=== PATIENT | female | born 1960 | race Two or more races ===

== ENCOUNTER 2024-08-05 10:42 | Emergency (ER) | payer MEDICAID, SELFPAY ==
[2024-08-05 11:29] VITALS: BP 147/105; BP 189/113; PULSE 100; RESP 19; TEMP 37.1; O2SAT 98; BMI 28.1
--- NOTE | 2024-08-05 11:41 | XR_ITS ---
Examination: CT abdomen with intravenous contrast CT pelvis with intravenous contrast 2-D coronal reconstructions 2-D sagittal reconstructions Date and time of exam:August 05, 2024 1542 hours Comparison January 06, 2023 INDICATIONS: Onset right lower abdominal pain with nausea today. CTDI: vol (mGy) 9.16 DLP: (mGycm) 501 Technique: Multiple axial sections of the abdomen and pelvis have been obtained. 64 slice high-resolution scanner used. 3 mm axial sections have been obtained, post intravenous injection 60 cc [id number] 2-D sagittal, coronal reconstructions obtained. Low dose protocols were performed. One or more of the following dose reduction techniques were used; automated exposure control, adjustment of the mA and/or KV according to patient size, use of iterative reconstruction technique. Findings: No focal liver or splenic lesion Absent gallbladder No pancreatic or adrenal mass 2 mm upper pole right renal calculus Advanced right hydronephrosis, prominent renal cortical thinning 2 mm calculus in the lower pole right kidney Mild left hydronephrosis, no ureteral calculi Aorta normal size Normal appendix No bowel obstruction Colonic diverticulosis, no diverticulitis No bladder mass or bladder calculi Absent uterus Severe osteopenia Moderate chronic osteoporotic compressions L1 mild chronic osteoporotic compressions L3-L4 IMPRESSION: Advanced right hydronephrosis, prominent right renal cortical thinning 2 mm calculus lower pole right kidney Mild left hydronephrosis, no ureteral calculi
--- NOTE | 2024-08-05 11:44 | EDNOTE_ITS ---
<Statement entered by Sade Kowalski MD - 08/05/24 17:11> As co-signing physician, I was present and available for consult prn. I concur with the plan and care as documented by the midlevel provider. ED Abdominal Pain RME/HPI General Chief Complaint: Abdominal Pain Stated complaint: Abdominal pain since last night Time seen by provider: 08/05/24 11:17 Arrival date/time: 08/05/24 10:42 RME / HPI RME / HPI narrative: 63-year-old female patient with no significant medical history, came in for evaluation regarding right lower quadrant pain. Onset of symptoms since last night as sudden onset of right lower quadrant pain, described as dull ache, severity moderate. Associated with nausea. Patient denies any fever. Patient denies any vomiting denies any diarrhea denies any constipation. Denies any dys uria hematuria or frequency. Patient told me that he had a history of kidney stone in the past also. Patient took ibuprofen with no relief. Related Data Home Medications ?Medication ?Instructions ?Recorded ?Confirmed ibuprofen 600 mg tablet 1 tab PO DAILY PRN Pain 02/22/22 11/07/22 omeprazole 20 mg capsule,delayed 20 mg PO QDAY 09/12/22 11/07/22 release Previous Rx's ?Medication ?Instructions ?Recorded hydrocodone 5 mg-acetaminophen 325 1 tab PO TID PRN pain #8 tabs 06/09/22 mg tablet ciprofloxacin HCl 500 mg tablet 500 mg PO BID #20 tabs 12/17/22 metronidazole 500 mg tablet 500 mg PO TID #21 tabs 12/17/22 hydrocodone 5 mg-acetaminophen 325 1 tab PO Q8H PRN pain #14 tabs 03/24/23 mg tablet ibuprofen 600 mg tablet 600 mg PO TID PRN pain #30 tabs 03/24/23 polyethylene glycol 3350 17 17 g PO QDAY #119 grams 03/24/23 gram/dose oral powder (ClearLax) cephalexin 500 mg capsule 500 mg PO QID #28 caps 08/10/23 hydrocodone 5 mg-acetaminophen 325 1 tab PO Q8H PRN pain #10 tabs 08/10/23 mg tablet acetaminophen 300 mg-codeine 30 mg 1 tab PO TID PRN pain #20 tabs 08/05/24 tablet Allergies Allergy/AdvReac Type Severity Reaction Status Date / Time clindamycin Allergy Severe Rash Verified 08/09/23 18:29 morphine Allergy Severe Rash Verified 08/09/23 18:29 Review of Systems Review of Systems Narrative Review of Systems: Review of system reviewed and within normal limits except mentioned in HPI ED Exam Narrative Physical exam: VITAL SIGNS: Reviewed. GENERAL APPEARANCE: Alert and interactive, follows commands, no acute distress, HEAD AND FACE: Non-traumatic. ENT: PERRL, pink conjunctivitis, eyelid no trauma, Mucous membrane moist. NECK: Supple, nontender, no nuchal rigidity. CHEST: No tenderness, no crepitus, no paradoxical movement, no retractions. LUNGS: Clear, well ventilated, symmetric, no rales, no wheezing, no ronchi, no stridor, good breath sounds bilaterally. HEART: Regular rate, regular rhythm, no murmur, no gallops. ABDOMEN: Soft, positive bowel sounds, nondistended, no guarding, right lower quadrant tenderness, no rebound, no masses, RECTAL: Deferred. GENITAL: Deferred. NEUROLOGICAL: Gross motor function intact sensory function intact, Appropriate for age. MUSCULOSKELETAL: low back nontender, full range of motion. EXTREMITIES: Nontender, full range of motion. SKIN: Color pink, dry, no rash, no lacerations, no abrasions, no contusions. LYMPHATICS: Deferred. Course Quality Measures none Orders Category Date Time Status CT Screening NOW Care 08/05/24 11:[address] abdomen pelvis w con Stat Exams 08/05/24 11:41 Completed C-Reactive Protein Stat Lab 08/05/24 12:06 Completed CBC Stat Lab 08/05/24 12:06 Completed Comprehensive Metabolic Panel Stat Lab 08/05/24 12:06 Completed Lactate (Lactic Acid) Stat Lab 08/05/24 12:06 Completed Lactic Acid, 3 HR Stat Lab 08/05/24 16:22 Completed Partial Thromboplastin Time Stat Lab 08/05/24 12:06 Completed Procalcitonin Stat Lab 08/05/24 12:06 Completed Prothrombin Time with INR Stat Lab 08/05/24 12:06 Completed UA, C/S IF [Urinalysis, C/S if Indicated] Stat Lab 08/05/24 12:56 Completed Acetaminophen Tab [Tylenol ES Tab] Med 08/05/24 16:59 Discontinued 1,000 mg PO X1 ONE Ketorolac Inj [Toradol Inj] Med 08/05/24 11:43 Discontinued 30 mg IVP X1 ONE Ondansetron Inj [Zofran Inj] Med 08/05/24 11:43 Discontinued 4 mg IV X1 ONE Sodium Chloride 0.9% 1000 ml [Ns] 1,000 ml Med 08/05/24 11:44 Discontinued IV 999 mls/hr Vital Signs Vital signs: Vital Signs Temperature 98.8 F 08/05/24 11:29 Pulse Rate 100 08/05/24 11:29 Respiratory Rate 19 08/05/24 11:29 Blood Pressure 189/113 H 08/05/24 11:29 Pulse Oximetry (%) 98 08/05/24 11:29 Oxygen Delivery Method Room Air 08/05/24 11:29 Abdominal Pain [facility] Narrative [facility] Narrative:: 63-year-old female patient with no significant medical history, came in for evaluation regarding right lower quadrant pain. Onset of symptoms since last night as sudden onset of right lower quadrant pain, described as dull ache, severity moderate. Associated with nausea. Patient denies any fever. Patient denies any vomiting denies any diarrhea denies any constipation. Denies any dysuria hematuria or frequency. Patient told me that he had a history of kidney stone in the past also. Patient took ibuprofen with no relief. Patient workup all came back normal except for leukocytosis of 14.5. Patient's creatinine is normal. Urinalysis no UTI. CT scan of the abdomen pelvis showed Advanced right hydronephrosis, prominent right renal cortical thinning 2 mm calculus lower pole right kidney Mild left hydronephrosis, no ureteral calculi Patient data External records reviewed:: None Clinical information provided by:: patient Social determinants that could affect healthcare access:: none Patient has the following chronic illnesses:: History of kidney stone How is presenting disease/condition affected by chronic disease/condition?: exacerbated by Evaluation data The following diagnostics were reviewed and interpreted by me:: lab results and radiology exam(s) Lab and/or radiology exams considered but not ordered:: None Interpretation Summary: See above in the MDM Medications / Prescriptions Medications or Prescriptions considered but not ordered:: none Medication administrations:: Medication Administration History Discontinued Medications Acetaminophen (Acetaminophen 500 Mg Tablet) 1,000 mg PO X1 ONE Stop: 08/05/24 17:00 Sodium Chloride (Ns) 1,000 mls @ 999 mls/hr IV .Q1H1M ONE Stop: 08/05/24 12:44 Last Infusion: 08/05/24 16:19 Dose: Infused Documented By: JOSÉ MIGUEL Admin: 08/05/24 15:05 Dose: 999 mls/hr Documented By: KOTA Ketorolac Tromethamine (Ketorolac Inj 30 Mg/Ml Vial) 30 mg IVP X1 ONE Stop: 08/05/24 11:44 Last Admin: 08/05/24 15:06 Dose: 30 mg Documented By: KOTA Ondansetron HCl (Ondansetron Inj 2 Mg/Ml Inj 2 Ml) 4 mg IV X1 ONE; Protocol Stop: 08/05/24 11:44 Last Admin: 08/05/24 15:06 Dose: 4 mg Documented By: KOTA Toradol IV fluids and Tylenol. Patient was also given Zofran with good relief of pain Consultations Consultation(s) initiated? (list below): No Diagnosis Differential diagnosis abdominal pain: abdominal pain, acute appendicitis and calculus of kidney Most likely diagnosis given after review of the tests above:: Abdominal pain, renal colic, nephrolithiasis Admission Indicated Admission indicated?: not indicated Explain why admission is indicated or not indicated:: Stable Admission Request Was there a request for admission?: No Disposition Plan Disposition Plan: Discharge Discharge Attestation Discharge Attestation: The patient was given an opportunity to ask questions and understood the discharge instructions. Discharge instructions specifically effects, indications for sooner follow up or return to the emergency department, and the expected course of current diagnosis. Patient condition: Stable Discharge Plan Plan Patient Disposition: HOME (Self Care) Disposition Comment: Stable Prescriptions/Referrals Prescriptions/Med Rec: New acetaminophen-codeine 300-30 mg tablet 1 tab PO TID PRN (Reason: pain) Qty: 20 0RF No Action ibuprofen 600 mg tablet 1 tab PO DAILY PRN (Reason: Pain) Patient Comments: take 1 tablet by mouth three times a day with food or milk if needed hydrocodone-acetaminophen 5-325 mg tablet 1 tab PO TID MDD 3 PRN (Reason: pain) Qty: 8 0RF hydrocodone-acetaminophen 5-325 mg tablet 1 tab PO Q8H MDD 3 PRN (Reason: pain) Qty: 14 0RF Rx Instructions: Patient has taken this medication in the past. ibuprofen 600 mg tablet 600 mg PO TID PRN (Reason: pain) Qty: 30 0RF Rx Instructions: Take with food. polyethylene glycol 3350 [ClearLax] 17 gram/dose powder 17 g PO QDAY Qty: 119 0RF Rx Instructions: While on narcotics to avoid constipation. cephalexin 500 mg capsule 500 mg PO QID Qty: 28 0RF hydrocodone-acetaminophen 5-325 mg tablet 1 tab PO Q8H MDD 3 tabs/day PRN (Reason: pain) Qty: 10 0RF omeprazole 20 mg Capsule,Delayed Release(Dr/Ec) 20 mg PO QDAY metronidazole 500 mg tablet 500 mg PO TID Qty: 21 0RF ciprofloxacin HCl 500 mg tablet 500 mg PO BID Qty: 20 0RF Referrals: No Primary/Family,Physician [Primary Care Provider] - In 1 week Problem List Clinical Impression: Abdominal pain, Nephrolithiasis Patient/Caregiver Discharge Instructions Discharge Activity: activity as tolerated Education Materials: ED Kidney Stone w/ Colic Additional Instructions: Thank you for the opportunity for serving you today. You are stable for discharged . You are advised to: Follow-up with your urologist in 1 to 2 days Return to ED for worsening of symptoms Increase oral fluids Take medication as prescribed Print Language: Italian Stand Alone Forms: Santa Award Info., Patient Portal Info Letter PA/PARTH Supervising Physician GUME/PARTH Supervising Physician: MD Dex
[2024-08-05 12:24] LABS: Lactate (Lactic Acid) 2.8 mMol/L (0.4-2.0)
[2024-08-05 12:30] LABS: Basophils % (Auto) 0 % (0-2.5); Eosinophils # (Auto) 0.1 Thou/mm3 (0.0-0.5); Eosinophils % (Auto) 1 % (0-10); Hematocrit 44.4 % (36.0-46.0); Hemoglobin 14.7 g/dL (12.0-16.0); Immature Granulocytes % (Auto) 1 % (0-0); Immature Granulocytes Auto 0.16 Thou/mm3 (0.00-0.00); Lymphocytes # (Auto) 2.9 Thou/mm3 (1.0-4.8); Lymphocytes % (Auto) 20 % (10-50); Mean Corpuscular HGB Conc 33.1 g/dl (31.0-37.0); Mean Corpuscular Hemoglobin 30.5 pg (25.0-35.0); Mean Corpuscular Volume 92 fL (80-100); Monocytes # (Auto) 1.2 Thou/mm3 (0.0-0.8); Monocytes % (Auto) 8 % (0-12); Neutrophils # (Auto) 10.2 Thou/mm3 (1.8-7.7); Neutrophils % (Auto) 70 % (37-80); Nucleated Red Blood Cell % 0 /100 WBC (0); Platelet Count 197 Thou/mm3 (140-440); RDW Standard Deviation 48.6 fL (36.4-46.3); Red Blood Count 4.82 Miln/mm3 (4.00-5.20); White Blood Count 14.5 Thou/mm3 (3.6-11.0)
[2024-08-05 12:45] LABS: Partial Thromboplastin Time 32.1 Seconds (22.0-36.0); Prothrombin Time 10.9 Seconds (9.0-12.2)
[2024-08-05 12:54] LABS: Alanine Aminotransferase 27 U/L (10-49); Albumin, Serum 4.7 gm/dL (3.4-4.8); Albumin/Globulin Ratio 1.8 (1.2-2.2); Alkaline Phosphatase 182 U/L (46-116); Anion Gap 11 (7-16); Aspartate Amino Transferase 23 U/L (0-34); BUN/Creatinine Ratio 18 Ratio (12-20); Bilirubin,Total 1.1 mg/dL (0.3-1.2); Blood Urea Nitrogen 16 mg/dL (9-23); C-Reactive Protein 2.1 mg/dL (0.0-0.9); Calcium 9.7 mg/dL (8.3-10.6); Calcium (Corrected) 9.7 mg/dL (8.5-10.1); Carbon Dioxide 26.8 mMol/L (20.0-31.0); Chloride 99 mMol/L (98-107); Creatinine (Component) 0.9 mg/dL (0.6-1.3); Estimated Creatinine Clearance 57.7 mL/min (>60); Globulin 2.6 gm/dL (2.3-3.5); Glucose 116 mg/dL (74-106); Osmolality,Calculated 276 (275-295); Potassium 3.6 mMol/L (3.4-5.1); Procalcitonin 0.12 ng/ml (0.0-0.49); Sodium 137 mMol/L (136-145); Total Protein 7.3 gm/dL (5.7-8.2); eGFR > 60 See Note
[2024-08-05 13:04] LABS: Collection Type, Urine Clean Catch
[2024-08-05 13:10] LABS: Bilirubin,Urine Negative (Negative); Blood,Urine Negative (Negative); Clarity,Urine Clear (Clear/Hazy); Color,Urine Yellow (Lt Yel-Yel); Culture Indicated,Urine Not Indicated; Glucose, Urine Negative (Negative); Ketones,Urine Negative (Negative); Leukocyte Esterase,Urine Negative (Negative); Nitrite,Urine Negative (Negative); Protein,Urine 1+ (Neg - Trace); RBC,Urine 2 /hpf (0-3); Specific Gravity,Urine 1.017 (1.001-1.035); Squamous Epithelial Cell,Urine 2 /hpf (0-5); Urobilinogen,Urine Negative mg/dL (0.0-1.0); WBC,Urine 3 /hpf (0-5)
--- NOTE | 2024-08-05 14:55 | PC.NURSE ---
CALLED PT BACK, NO ANSWER AT THIS TIME
[2024-08-05] MEDS: SODIUM CHLORIDE 0.9% 1000 ML 1,000 ML 999 ML IV (15:05)
[2024-08-05] MEDS: ONDANSETRON INJ 2 MG/ML INJ 2 ML 4 MG IV (15:06)
[2024-08-05] MEDS: KETOROLAC INJ 30 MG/ML VIAL IVP (15:06)
[2024-08-05 15:07] VITALS: BP 157/83; PULSE 93; RESP 18; O2SAT 95
[2024-08-05 15:17] LABS: Reflex Lactate? Y
[2024-08-05 16:21] VITALS: BP 176/109; PULSE 88; RESP 18; TEMP 36.7; O2SAT 98
[2024-08-05 16:45] LABS: Lactic Acid, 3 HR 0.9 mMol/L (0.4-2.0)
== END 2024-08-05 18:15 | disposition home or self-care (01) ==
PROVIDERS: Nurse Practitioner Family; Emergency Provider Emergency Medicine
DX: N20.0 Calculus of kidney (principal)
CPT/HCPCS: 36415; 74177; 80053; 81001; 83605; 84145; 85025; 85610; 85730; 86140; 96361; 96374; 96375; 99285; A4649; J1885; J2405; J7030; Q9967

== ENCOUNTER 2024-11-17 08:56 | Emergency (ER) | payer MEDICARE, MEDICAID, SELFPAY ==
[2024-11-17 08:57] VITALS: BMI 25.2
--- NOTE | 2024-11-17 09:02 | EKG_ITS ---
[facility] Test Date: 2024-11-17 Pat Name: NAVNEET JOHNSON Department: Room: - Gender: Female Fitness And Wellness Manager: : 1960 Requested By: Ricardo Quezada (YESSI) Order Number: [id number] Reading MD: Ricardo Quezada ([employer]ER) Measurements Intervals [place] Rate: 104 P: 7 VA: 123 QRS: -23 QRSD: 86 T: 16 QT: 342 QTc: 451 Interpretive Statements SINUS TACHYCARDIA BORDERLINE LEFT AXIS DEVIATION [QRS AXIS < -20] ABNORMAL RHYTHM ECG Compared to ECG 09/12/2022 10:05:01 Sinus rhythm no longer present /store/S0/[id number].pdf
[2024-11-17 09:11] VITALS: BP 99/67; PULSE 103; RESP 20; TEMP 36.3; O2SAT 97; BMI 27.8
--- NOTE | 2024-11-17 09:26 | PD.EDRME ---
Rapid Medical Screening Exam RME Arrival date/time: 11/17/24 08:56 64-year-old female presents to the emergency department today for complaint of generalized weakness and fatigue Chief Complaint: Dizziness Vital signs: Vital Signs Temperature 97.4 F 11/17/24 09:11 Pulse Rate 103 H 11/17/24 09:11 Respiratory Rate 20 11/17/24 09:11 Blood Pressure 99/67 11/17/24 09:11 Pulse Oximetry (%) 97 11/17/24 09:11 Oxygen Delivery Method Room Air 11/17/24 09:11
--- NOTE | 2024-11-17 09:45 | PD.EDWEAK ---
ED Weakness RME/HPI General Chief complaint: Dizziness Stated complaint: WEAK AND DIZZINESS SINCE FRIDAY Arrival date/time: 11/17/24 08:56 RME / HPI RME / HPI Narrative: 11/17/24 08:56 64-year-old female presents to the emergency department today for complaint of generalized weakness and fatigue DR. KOWALSKI MAIN ED EVALUATION: 64 year old female presents to the Emergency Department with complaints of generalized weakness and fatigue. She mentions that she has vertigo, room spinning. Onset of symptoms Friday, 3 days, intermittently. She states that 3 days ago she had diarrhea but yesterday it was back to normal, normal small bowel movement yesterday evening. She mentions she cannot eat well. No abdominal pain or black stools. No fevers or chills. Related Data Home Medications ?Medication ?Instructions ?Recorded ?Confirmed ibuprofen 600 mg tablet 1 tab PO DAILY PRN Pain 02/22/22 11/07/22 omeprazole 20 mg capsule,delayed 20 mg PO QDAY 09/12/22 11/07/22 release Previous Rx's ?Medication ?Instructions ?Recorded hydrocodone 5 mg-acetaminophen 325 1 tab PO TID PRN pain #8 tabs 06/09/22 mg tablet ciprofloxacin HCl 500 mg tablet 500 mg PO BID #20 tabs 12/17/22 metronidazole 500 mg tablet 500 mg PO TID #21 tabs 12/17/22 hydrocodone 5 mg-acetaminophen 325 1 tab PO Q8H PRN pain #14 tabs 03/24/23 mg tablet ibuprofen 600 mg tablet 600 mg PO TID PRN pain #30 tabs 03/24/23 polyethylene glycol 3350 17 17 g PO QDAY #119 grams 03/24/23 gram/dose oral powder (ClearLax) cephalexin 500 mg capsule 500 mg PO QID #28 caps 08/10/23 hydrocodone 5 mg-acetaminophen 325 1 tab PO Q8H PRN pain #10 tabs 08/10/23 mg tablet acetaminophen 300 mg-codeine 30 mg 1 tab PO TID PRN pain #20 tabs 08/05/24 tablet Allergies Allergy/AdvReac Type Severity Reaction Status Date / Time clindamycin Allergy Severe Rash Verified 11/17/24 08:59 morphine Allergy Severe Rash Verified 11/17/24 08:59 Review of Systems Review of Systems Systems Reviewed: All systems reviewed, normal except as documented Past Medical History Past Medical History GASTROINTESTINAL: Positive Gastrointestinal Disorders, Diverticulitis, Ulcer and Gastroesophageal Reflux Disease GENITOURINARY: Positive Genitourinary Disorders, Renal Disease (stones) and Kidney Stones REPRODUCTIVE: Positive Previous Pregnancies MUSCULOSKELETAL: Positive Musculoskeletal Disorders, Arthritis and Fractures ENT: Positive Ear Infection OTHER HISTORY: Positive Hospitalization, Falls, Chicken Pox, Measles, Mumps and Cancer Family History FAMILY HISTORY: Positive Family Cardiac Disorders, Family Gastrointestinal Problems, Family Cancer and Family Surgery Surgical History SURGICAL: Positive Abdominal Surgery and Hysterectomy Social History SMOKING STATUS: Never smoker SECOND HAND EXPOSURE: No SUBSTANCE USE: does not use ALCOHOL: Never ED Exam Narrative Physical exam: GENERAL APPEARANCE: alert and oriented x 4, well-developed, well-nourished, no acute distress VITALS: All vitals were reviewed and the pulse ox is 97% on room air, which is normal according to my interpretation. HEENT: Normocephalic, atraumatic; pupils equal, round, reactive to light; EOMI; mucous membranes pink, moist; oropharynx clear NECK: Supple LUNGS: CTABL; no wheezes, no rales, no rhonchi HEART: Regular rate, regular rhythm; normal S1, S2; no murmurs ABDOMEN: non distended; normal BS; soft, no tenderness, no guarding, no rebound; no masses, no organomegaly, no hernia BACK: no CVA tenderness EXTREMITIES: atraumatic; no edema NEUROLOGIC: awake; alert and oriented x4; cranial nerves II-XII grossly intact; no focal sensory or motor deficits PSYCHIATRIC: appropriate mood and affect SKIN: warm, dry, normal color; no rashes Course Quality Measures none Orders Category Date Time Status EKG (ED ONLY) *Do not use* NOW Care 11/17/24 09:02 Completed EKG (ED Only) Stat Exams 11/17/24 09:02 Draft XR abdomen series w chest 1V Stat Exams 11/17/24 10:34 Completed B-Type Natriuretic Peptide Stat Lab 11/17/24 10:14 Completed CBC Stat Lab 11/17/24 10:14 Completed Comprehensive Metabolic Panel Stat Lab 11/17/24 10:14 Completed Magnesium Stat Lab 11/17/24 10:14 Completed TSH [Thyroid Stimulating Hormone] Stat Lab 11/17/24 10:14 Completed Troponin I Stat Lab 11/17/24 10:14 Completed Urinalysis Stat Lab 11/17/24 09:55 Completed KCL 10% Liq UDC 15 ML Med 11/17/24 11:37 Discontinued 40 meq PO X1 ONE Magnesium Oxide [Mag-Ox 400] Med 11/17/24 11:37 Discontinued 400 mg PO X1 ONE Meclizine HCl [Antivert] Med 11/17/24 11:59 Discontinued 25 mg PO X1 ONE Vital Signs Vital signs: Vital Signs Temperature 97.4 F 11/17/24 09:11 Pulse Rate 103 H 11/17/24 09:11 Respiratory Rate 20 11/17/24 09:11 Blood Pressure 99/67 11/17/24 09:11 Pulse Oximetry (%) 97 11/17/24 09:11 Oxygen Delivery Method Room Air 11/17/24 09:11 Weakness MDM Narrative MDM Narrative:: Mary Moya am scribing for and in the presence of Dr. Kowalski. Patient data External records reviewed:: [facility] previous records (Reviewed last ED visit dated 08/05/24, discharged with the following: Abdominal pain) Clinical information provided by:: patient Social determinants that could affect healthcare access:: none Patient has the following chronic illnesses:: Chronic back pain after an accident in 2006 and 2007 resulting in weakness to her left lower extremity, injury to her coccyx, and both disc dislocation + hernias. How is presenting disease/condition affected by chronic disease/condition?: exacerbated by Evaluation data The following diagnostics were reviewed and interpreted by me:: lab results, radiology exam(s) and EKG tracing(s) (EKG#1: EKG at 0920 hours. Interpreted by me: sinus tachycardia, rate 104, no acute ischemic changes) Lab and/or radiology exams considered but not ordered:: none Interpretation Summary: Procedure(s): XR abdomen series w chest 1V Accession Number(s): [id number] cc: Cristi Lamb MD; Luisito Melvin MD; Sade Kowalski MD~ Examination: Abdominal series 3 views including upright AP chest Technique: Sitting AP chest, AP upright AP supine abdomen 3 views Exam date and time: November 17, 2024 1050 hrs. Indications: Generalized weakness and abdominal pain today Findings: Normal heart size Stable 3 mm pulmonary nodule left lower lobe compared with November 08, 2020 Mild vascular congestion Nonobstructive bowel gas pattern Moderate stool throughout the colon Impression: Nonobstructive bowel gas pattern Dictated By: Luisito Melvin MD Medications / Prescriptions Medications or Prescriptions considered but not ordered:: none Medication administrations:: Medication Administration History Discontinued Medications Magnesium Oxide (Magnesium Oxide 400 Mg Tablet) 400 mg PO X1 ONE Stop: 11/17/24 11:38 Last Admin: 11/17/24 12:10 Dose: 400 mg Documented By: ESPERANZA Meclizine HCl (Meclizine Hcl 25 Mg Tablet) 25 mg PO X1 ONE Stop: 11/17/24 12:00 Last Admin: 11/17/24 12:10 Dose: 25 mg Documented By: ESPERANZA Potassium Chloride (Potassium Chloride 10% 20 Meq/15 Ml Udc) 40 meq PO X1 ONE Stop: 11/17/24 11:38 Last Admin: 11/17/24 12:10 Dose: 40 meq Documented By: ESPERANZA see above if any Consultations Consultation(s) initiated? (list below): No Diagnosis Weakness Differential Diagnosis: sepsis, dehydration and other (electrolyte imbalance) Most likely diagnosis given after review of the tests above:: Dizziness Hypokalemia Admission Indicated Admission indicated?: not indicated Admission Request Was there a request for admission?: No Disposition Plan Disposition Plan: Discharge Discharge Attestation Discharge Attestation: The patient and all family members were given an opportunity to ask questions and understood the discharge instructions. Discharge instructions specifically effects, indications for sooner follow up or return to the emergency department, and the expected course of current diagnosis. Patient condition: Stable Discharge Plan Plan Patient Disposition: HOME (Self Care) Prescriptions/Referrals Prescriptions/Med Rec: No Action ibuprofen 600 mg tablet 1 tab PO DAILY PRN (Reason: Pain) Patient Comments: take 1 tablet by mouth three times a day with food or milk if needed hydrocodone-acetaminophen 5-325 mg tablet 1 tab PO TID MDD 3 PRN (Reason: pain) Qty: 8 0RF hydrocodone-acetaminophen 5-325 mg tablet 1 tab PO Q8H MDD 3 PRN (Reason: pain) Qty: 14 0RF Rx Instructions: Patient has taken this medication in the past. ibuprofen 600 mg tablet 600 mg PO TID PRN (Reason: pain) Qty: 30 0RF Rx Instructions: Take with food. polyethylene glycol 3350 [ClearLax] 17 gram/dose powder 17 g PO QDAY Qty: 119 0RF Rx Instructions: While on narcotics to avoid constipation. cephalexin 500 mg capsule 500 mg PO QID Qty: 28 0RF hydrocodone-acetaminophen 5-325 mg tablet 1 tab PO Q8H MDD 3 tabs/day PRN (Reason: pain) Qty: 10 0RF omeprazole 20 mg Capsule,Delayed Release(Dr/Ec) 20 mg PO QDAY metronidazole 500 mg tablet 500 mg PO TID Qty: 21 0RF ciprofloxacin HCl 500 mg tablet 500 mg PO BID Qty: 20 0RF acetaminophen-codeine 300-30 mg tablet 1 tab PO TID PRN (Reason: pain) Qty: 20 0RF Referrals: Cristi Lamb MD [Primary Care Provider] - In 1 week Problem List Clinical Impression: Dizziness, Hypokalemia Patient/Caregiver Discharge Instructions Education Materials: ED Dizziness, Uncertain Cause, ED Hypokalemia Print Language: Panamanian Stand Alone Forms: [employer] Award Info., Patient Portal Info Letter
[2024-11-17 10:11] LABS: Collection Type, Urine Clean Catch
[2024-11-17 10:13] VITALS: BP 105/65; PULSE 89; RESP 16; TEMP 36.8; O2SAT 99
[2024-11-17 10:22] LABS: Bilirubin,Urine Negative (Negative); Blood,Urine 1+ (Negative); Clarity,Urine Turbid (Clear/Hazy); Color,Urine Yellow (Lt Yel-Yel); Glucose, Urine Negative (Negative); Ketones,Urine Trace (Negative); Leukocyte Esterase,Urine Positive (Negative); Nitrite,Urine Positive (Negative); PH,Urine 6.5 (5.0-7.0); Protein,Urine 2+ (Neg - Trace); RBC,Urine 9 /hpf (0-3); Specific Gravity,Urine 1.012 (1.001-1.035); Squamous Epithelial Cell,Urine 23 /hpf (0-5); Urobilinogen,Urine Negative mg/dL (0.0-1.0); WBC,Urine 628 /hpf (0-5)
[2024-11-17 10:22] LABS: Basophils % (Auto) 0 % (0-2.5); Eosinophils # (Auto) 0.1 Thou/mm3 (0.0-0.5); Eosinophils % (Auto) 1 % (0-10); Hemoglobin 11.8 g/dL (12.0-16.0); Immature Granulocytes % (Auto) 2 % (0-0); Immature Granulocytes Auto 0.22 Thou/mm3 (0.00-0.00); Lymphocytes # (Auto) 2.5 Thou/mm3 (1.0-4.8); Lymphocytes % (Auto) 25 % (10-50); Mean Corpuscular HGB Conc 34.7 g/dl (31.0-37.0); Mean Corpuscular Hemoglobin 30.3 pg (25.0-35.0); Mean Corpuscular Volume 87 fL (80-100); Monocytes # (Auto) 0.7 Thou/mm3 (0.0-0.8); Monocytes % (Auto) 7 % (0-12); Neutrophils # (Auto) 6.6 Thou/mm3 (1.8-7.7); Neutrophils % (Auto) 64 % (37-80); Nucleated Red Blood Cell # 0.04 Thou/mm3 (0.00-0.00); Nucleated Red Blood Cell % 0 /100 WBC (0); Platelet Count 281 Thou/mm3 (140-440); RDW Standard Deviation 47.7 fL (36.4-46.3); Red Blood Count 3.89 Miln/mm3 (4.00-5.20); White Blood Count 10.2 Thou/mm3 (3.6-11.0)
--- NOTE | 2024-11-17 10:34 | XR_ITS ---
Examination: Abdominal series 3 views including upright AP chest Technique: Sitting AP chest, AP upright AP supine abdomen 3 views Exam date and time: November 17, 2024 1050 hrs. Indications: Generalized weakness and abdominal pain today Findings: Normal heart size Stable 3 mm pulmonary nodule left lower lobe compared with November 08, 2020 Mild vascular congestion Nonobstructive bowel gas pattern Moderate stool throughout the colon Impression: Nonobstructive bowel gas pattern
[2024-11-17 10:46] LABS: B-Type Natriuretic Peptide 51 pg/mL (0-100)
[2024-11-17 11:03] LABS: Alanine Aminotransferase 14 U/L (10-49); Albumin, Serum 3.5 gm/dL (3.4-4.8); Albumin/Globulin Ratio 1.6 (1.2-2.2); Alkaline Phosphatase 99 U/L (46-116); Anion Gap 11 (7-16); Aspartate Amino Transferase 15 U/L (0-34); BUN/Creatinine Ratio 16 Ratio (12-20); Bilirubin,Total 0.7 mg/dL (0.3-1.2); Blood Urea Nitrogen 16 mg/dL (9-23); Calcium 8.7 mg/dL (8.3-10.6); Calcium (Corrected) 9.1 mg/dL (8.5-10.1); Carbon Dioxide 22.1 mMol/L (20.0-31.0); Chloride 111 mMol/L (98-107); Globulin 2.2 gm/dL (2.3-3.5); Glucose 115 mg/dL (74-106); Magnesium 1.6 mg/dL (1.6-2.6); Osmolality,Calculated 289 (275-295); Sodium 144 mMol/L (136-145); Thyroid Stimulating Hormone 1.53 uIU/mL (0.55-4.78); Total Protein 5.7 gm/dL (5.7-8.2); Troponin I < 0.020 ng/mL (0.0-0.045); eGFR > 60 See Note
[2024-11-17 11:13] LABS: Potassium 2.6 mMol/L (3.4-5.1)
[2024-11-17] MEDS: POTASSIUM CHLORIDE 10% 20 MEQ/15 ML UDC 40 MEQ PO (12:10)
[2024-11-17] MEDS: MAGNESIUM OXIDE 400 MG TABLET PO (12:10)
[2024-11-17] MEDS: MECLIZINE HCL 25 MG TABLET PO (12:10)
[2024-11-17 12:14] VITALS: BP 122/80; PULSE 83; RESP 21; TEMP 36.9; O2SAT 98
== END 2024-11-17 13:41 | disposition home or self-care (01) ==
PROVIDERS: Nurse Practitioner Primary Care; Emergency Provider Emergency Medicine; PCP Family Medicine
DX: E87.6 Hypokalemia (principal); R00.0 Tachycardia, unspecified
CPT/HCPCS: 36415; 74022; 80053; 81001; 83735; 83880; 84443; 84484; 85025; 93005; 99283; A9270

== ENCOUNTER → 2025-06-03 | Outpatient (CLI) | payer MEDICARE, MEDICAID, SELFPAY ==
[2025-06-03 14:53] LABS: Blood Urea Nitrogen 22 mg/dL (9-23); Creatinine (Component) 0.8 mg/dL (0.6-1.3); eGFR > 60 See Note
== END | disposition home or self-care (01) ==
LOC: COPL 13:02
PROVIDERS: PCP Family Medicine; Referring Provider Nurse Practitioner; Visit Provider Nurse Practitioner
DX: M54.50 Low back pain, unspecified (principal); G89.29 Other chronic pain; S32.010S Wedge compression fracture of first lumbar vertebra, sequela
CPT/HCPCS: 36415; 82565; 84520

== ENCOUNTER 2025-07-04 08:02 | Emergency (ER) | payer MEDICARE, MEDICAID, SELFPAY ==
[2025-07-04 08:16] VITALS: BP 148/83; PULSE 90; RESP 18; TEMP 36.8; O2SAT 99; BMI 26.0
--- NOTE | 2025-07-04 08:17 | XR_ITS ---
EXAMINATION: Ankle, left 3 views. Technique: Ankle AP, oblique, lateral 3 views Date and time of exam: July 04, 2025, 0843 hours INDICATIONS: Left ankle pain beginning 3 days ago FINDINGS: Soft tissue calcifications Severe osteopenia No acute ankle fracture no dislocation IMPRESSION: No acute ankle fracture
--- NOTE | 2025-07-04 08:18 | PD.EDANKLE ---
Lower Extremity Injury RME/HPI General Chief Complaint: Ankle/Foot Injury Stated Complaint: PAIN L) ANKLE Time Seen by Provider: 07/04/25 08:08 Source: patient Arrival date/time: 07/04/25 08:02 64-year-old female with no known medical history presents to the emergency room with a chief complaint of tenderness to her left ankle x 3 days. Patient denies any trauma. Mode of arrival: ambulatory Limitations: no limitations Related Data Home Medications ?Medication ?Instructions ?Recorded ?Confirmed ibuprofen 600 mg tablet 1 tab PO DAILY PRN Pain 02/22/22 11/07/22 omeprazole 20 mg capsule,delayed 20 mg PO QDAY 09/12/22 11/07/22 release Previous Rx's ?Medication ?Instructions ?Recorded hydrocodone 5 mg-acetaminophen 325 1 tab PO TID PRN pain #8 tabs 06/09/22 mg tablet ciprofloxacin HCl 500 mg tablet 500 mg PO BID #20 tabs 12/17/22 metronidazole 500 mg tablet 500 mg PO TID #21 tabs 12/17/22 hydrocodone 5 mg-acetaminophen 325 1 tab PO Q8H PRN pain #14 tabs 03/24/23 mg tablet ibuprofen 600 mg tablet 600 mg PO TID PRN pain #30 tabs 03/24/23 polyethylene glycol 3350 17 17 g PO QDAY #119 grams 03/24/23 gram/dose oral powder (ClearLax) cephalexin 500 mg capsule 500 mg PO QID #28 caps 08/10/23 hydrocodone 5 mg-acetaminophen 325 1 tab PO Q8H PRN pain #10 tabs 08/10/23 mg tablet acetaminophen 300 mg-codeine 30 mg 1 tab PO TID PRN pain #20 tabs 08/05/24 tablet Allergies Allergy/AdvReac Type Severity Reaction Status Date / Time clindamycin Allergy Severe Rash Verified 07/04/25 08:05 morphine Allergy Severe Rash Verified 07/04/25 08:05 Review of Systems Review of Systems Systems Reviewed: All systems reviewed, normal except as documented Constitutional Constitutional: Reports system reviewed and no additional complaints, except as documented, Denies fatigue, Denies fever(s), Denies headache(s) and Denies weakness Eyes Eyes: Reports system reviewed and no additional complaints, except as documented, Denies blurry vision and Denies change in vision ENT Ears, Nose, Mouth, and Throat: Reports system reviewed and no additional complaints, except as documented, Denies otalgia, Denies headache(s), Denies nasal congestion, Denies throat swelling and Denies vertigo Cardiovascular Cardiovascular: Reports system reviewed and no additional complaints, except as documented, Denies chest pain, Denies dyspnea and Denies dyspnea on exertion Respiratory Respiratory: Reports system reviewed and no additional complaints, except as documented, Denies chest congestion, Denies cough, Denies dyspnea, Denies dyspnea on exertion and Denies wheezing Gastrointestinal Gastrointestinal: Reports system reviewed and no additional complaints, except as documented, Denies abdominal pain, Denies cramping, Denies nausea and Denies vomiting Genitourinary Genitourinary: Reports system reviewed and no additional complaints, except as documented Musculoskeletal Musculoskeletal: Reports system reviewed and no additional complaints, except as documented, Reports arthralgias, Denies back pain, Reports joint swelling and Reports limited range of motion Integumentary/Breasts Skin/Breast: Reports system reviewed and no additional complaints, except as documented and Denies wounds Neurologic Neurologic: Reports system reviewed and no additional complaints, except as documented, Denies confusion, Denies headache(s), Denies lack of coordination, Denies vertigo and Denies weakness Psychiatric Psychiatric: Reports system reviewed and no additional complaints, except as documented, Denies anxiety, Denies confusion, Denies depression, Denies paranoia, Denies suicidal ideation and Denies tactile hallucinations Endocrine Endocrine: Reports system reviewed and no additional complaints, except as documented and Denies fatigue Hematologic/Lymphatic Hematologic/Lymphatic: Reports system reviewed and no additional complaints, except as documented and Denies lymphadenopathy Allergic/Immunologic Allergic/Immunologic: Reports system reviewed and no additional complaints, except as documented, Denies throat swelling, Denies urticaria and Denies wheezing Past Medical History Past Medical History NEUROLOGIC: Negative Neurological Disorders or Seizures CARDIAC: Negative Cardiac Disorders, Congestive Heart Failure, Edema, Cellulitis, Hypertension or Varicose Veins RESPIRATORY: Negative Chronic Obstructive Pulmonary Disease (COPD), Asthma, Tuberculosis, Pulmonary Embolism or Sleep Apnea GASTROINTESTINAL: Positive Gastrointestinal Disorders, Diverticulitis, Ulcer and Gastroesophageal Reflux Disease; Negative Hepatitis or Gall Bladder Disease GENITOURINARY: Positive Genitourinary Disorders, Renal Disease (stones) and Kidney Stones REPRODUCTIVE: Positive Previous Pregnancies; Negative Pelvic Inflammatory Disease MUSCULOSKELETAL: Positive Musculoskeletal Disorders, Arthritis and Fractures ENT: Positive Ear Infection ENDOCRINE: Negative Endocrine Disorders, Diabetes Mellitus Type 1, Diabetes Mellitus Type 2, Hypoglycemia or Hyperthyroidism HEMATOLOGIC: Negative Blood Disorders, Anemia, Leukemia, Sickle Cell Disease or Clotting Problems PSYCHO/SOCIAL: Negative Depression or Anxiety OTHER HISTORY: Positive Hospitalization, Falls, Chicken Pox, Measles, Mumps and Cancer; Negative Autoimmune Disease, Down Syndrome, Developmental Delay, Shingles, Blood Transfusions, Blood Transfusion Reaction, Anesthesia Reactions, Organ Transplant, Chemotherapy, Radiation Therapy, MRSA, Vancomycin-Resistant Enterococci, Human Immunodeficiency Virus (HIV), Rubella ([place] Measles), Pertussis or Cervical Cancer Family History FAMILY HISTORY: Positive Family Cardiac Disorders, Family Gastrointestinal Problems, Family Cancer and Family Surgery; Negative Family Psychiatric Problems, Family Respiratory Disorders or Family Anesthesia Reaction Surgical History SURGICAL: Positive Abdominal Surgery and Hysterectomy; Negative Cardiac Surgery, Pacemaker, Endocrine Surgery, Ear Surgery, Joint Replacement, Neurologic Surgery or Organ Transplant Social History SMOKING STATUS: Never smoker SECOND HAND EXPOSURE: No SUBSTANCE USE: does not use ED Exam General Limitations: Present no limitations General appearance: Present alert and in no apparent distress Head Head exam: Present atraumatic Eye Eye exam: Present normal appearance, PERRL and EOMI ENT ENT exam: Present normal exam, normal oropharynx and mucous membranes moist Neck Neck exam: Present normal inspection, full ROM and trachea midline Chest Chest inspection: Present normal inspection and symmetric chest wall rise Respiratory Respiratory exam: Present normal lung sounds bilaterally Cardiovascular Cardiovascular exam: Present regular rate, normal rhythm and normal heart sounds Abdominal Exam Abdominal exam: Present soft and normal bowel sounds Extremities Exam Extremities exam: Present normal inspection and full ROM Expanded Lower Extremity Exam Hip/Pelvis exam: Present normal inspection Upper leg exam: Present normal inspection Knee exam: Present normal inspection Lower leg exam: Present normal inspection Ankle exam: Present full ROM and tenderness; Absent swelling or erythema Back Exam Back exam: Present normal inspection and full ROM Neurological Exam Neurological exam: Present alert, oriented X3 and CN II-XII intact Psychiatric Psychiatric exam: Present normal affect and normal mood Skin Skin exam: Present warm, dry, intact and normal color Course Quality Measures none Orders Category Date Time Status sherry wrap [Splint / Immobilizer] STAT Care 07/04/25 08:17 Active XR ankle comp LT min 3V Stat Exams 07/04/25 08:17 Completed Ketorolac Inj [Toradol Inj] Med 07/04/25 08:17 Discontinued 30 mg IM X1 ONE Vital Signs Vital signs: Vital Signs Temperature 98.3 F 07/04/25 08:16 Pulse Rate 90 07/04/25 08:16 Respiratory Rate 18 07/04/25 08:16 Blood Pressure 148/83 H 07/04/25 08:16 Pulse Oximetry (%) 99 07/04/25 08:16 Oxygen Delivery Method Room Air 07/04/25 08:16 Extremity Injury, Lower MDM Narrative MDM Narrative:: 64-year-old female with no known medical history presents to the emergency room with a chief complaint of tenderness to her left ankle x 3 days. Patient denies any trauma. Patient is hemodynamically stable and in no apparent distress Physical examination shows an nonerythemic nonswollen tender left ankle. Patient states this has been bothering her since Friday. Patient states she is having tenderness when bearing weight on it. Patient normally walks with a walker. X-ray of the ankle was completed and was negative for any acute fracture or dislocation. X-ray just showed severe osteopenia Patient was discharged and educated to follow-up with primary care provider in the next 24 to 48 hours and return to the emergency room for any evidence of worsening signs or symptoms Patient data External records reviewed:: [facility] previous records Clinical information provided by:: patient Social determinants that could affect healthcare access:: none Patient has the following chronic illnesses:: No chronic illness How is presenting disease/condition affected by chronic disease/condition?: no chronic disease Evaluation data The following diagnostics were reviewed and interpreted by me:: lab results and radiology exam(s) Lab and/or radiology exams considered but not ordered:: Labs radiology exams considered and ordered Interpretation Summary: X-ray ankle-no acute fracture or dislocation Medications / Prescriptions Medications or Prescriptions considered but not ordered:: Medication given Medication administrations:: Medication Administration History Discontinued Medications Ketorolac Tromethamine (Ketorolac Inj 60 Mg/2 Ml Vial) 30 mg IM X1 ONE Stop: 07/04/25 08:18 Last Admin: 07/04/25 08:31 Dose: 30 mg Documented By: VL Medication given Consultations Consultation(s) initiated? (list below): No Diagnosis Extremity Injury, Lower Differential Diagnosis: ankle sprain and strain, ankle fracture and other (Tendinitis/arthritis) Most likely diagnosis given after review of the tests above:: Osteopenia of ankle Admission Indicated Admission indicated?: not indicated Admission Request Was there a request for admission?: No Disposition Plan Disposition Plan: Discharge Discharge Attestation Discharge Attestation: The patient and all family members were given an opportunity to ask questions and understood the discharge instructions. Discharge instructions specifically effects, indications for sooner follow up or return to the emergency department, and the expected course of current diagnosis. Patient condition: Stable Discharge Plan Plan Patient Disposition: HOME (Self Care) Discharge Disposition comment: Stable Prescriptions/Referrals Prescriptions/Med Rec: No Action ibuprofen 600 mg tablet 1 tab PO DAILY PRN (Reason: Pain) Patient Comments: take 1 tablet by mouth three times a day with food or milk if needed hydrocodone-acetaminophen 5-325 mg tablet 1 tab PO TID MDD 3 PRN (Reason: pain) Qty: 8 0RF hydrocodone-acetaminophen 5-325 mg tablet 1 tab PO Q8H MDD 3 PRN (Reason: pain) Qty: 14 0RF Rx Instructions: Patient has taken this medication in the past. ibuprofen 600 mg tablet 600 mg PO TID PRN (Reason: pain) Qty: 30 0RF Rx Instructions: Take with food. polyethylene glycol 3350 [ClearLax] 17 gram/dose powder 17 g PO QDAY Qty: 119 0RF Rx Instructions: While on narcotics to avoid constipation. cephalexin 500 mg capsule 500 mg PO QID Qty: 28 0RF hydrocodone-acetaminophen 5-325 mg tablet 1 tab PO Q8H MDD 3 tabs/day PRN (Reason: pain) Qty: 10 0RF omeprazole 20 mg Capsule,Delayed Release(Dr/Ec) 20 mg PO QDAY metronidazole 500 mg tablet 500 mg PO TID Qty: 21 0RF ciprofloxacin HCl 500 mg tablet 500 mg PO BID Qty: 20 0RF acetaminophen-codeine 300-30 mg tablet 1 tab PO TID PRN (Reason: pain) Qty: 20 0RF Problem List Clinical Impression: Osteopenia of ankle Patient/Caregiver Discharge Instructions Additional Instructions: Por favor, consulte con [facility]?dico de cabecera en las pr?ximas 24 a 48 horas. Se realizaron radiograf?as del tobillo que dieron negativo para cualquier fractura o luxaci?n aguda, y solo mostraron osteopenia severa. Si hay alguna evidencia de empeoramiento de los signos o s?ntomas, regrese a la larissa de emergencias de inmediato. Print Language: Albanian Stand Alone Forms: Santa Award Info., Work/School Release, Patient Portal Info Letter PA/[employer] Supervising Physician PA/[employer] Supervising Physician: Dr. Clay
[2025-07-04] MEDS: KETOROLAC INJ 60 MG/2 ML VIAL 30 MG IM (08:31)
== END 2025-07-04 10:05 | disposition home or self-care (01) ==
LOC: SERX 09:49
PROVIDERS: Emergency Provider Emergency Medicine; PCP Family Medicine
DX: M85.872 Other specified disorders of bone density and structure, left ankle and foot (principal)
CPT/HCPCS: 73610; 96372; 99283; J1885